=== PATIENT | male | born 1970 | race Caucasian/White ===

== ENCOUNTER 2024-06-16 15:24 | Emergency (ER) | payer OTHER, SELFPAY ==
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
[2024-06-16 15:26] VITALS: BP 148/95; PULSE 101; RESP 20; TEMP 35.6; O2SAT 100
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
[2024-06-16 18:12] VITALS: BP 146/78; PULSE 89; RESP 18; TEMP 36.2; O2SAT 99
== END 2024-06-16 18:14 | disposition home or self-care (01) ==
PROVIDERS: Emergency Provider Physician Assistant
DX: S16.1XXA Strain of muscle, fascia and tendon at neck level, initial encounter (principal); V89.2XXA Person injured in unspecified motor-vehicle accident, traffic, initial encounter
CPT/HCPCS: 70450; 72125; 72131; 99284